=== PATIENT | female | born 1995 | race Caucasian/White ===

== ENCOUNTER 2022-08-17 04:37 | Outpatient (REF) | payer OTHER, SELFPAY ==
--- NOTE | ~2022-08-17 | US_ITS ---
EXAMINATION: ULTRASOUND OF THE PELVIS CLINICAL INFORMATION: 6 cm left ovarian cyst. Lower abdominal pain. Rule out torsion.. COMPARISON: MRI performed 06/28/2022.. TECHNIQUE: Transabdominal and transvaginal pelvic ultrasound. Doppler evaluation with spectral analysis was performed. A transvaginal study was performed in addition to the transabdominal study which did not yield an adequate examination of the uterus and ovaries due to superimposed distended gas-filled loops of bowel. FINDINGS: The uterus is normal in size and appearance, measuring 7.2 x 3.1 x 5 cm longitudinally, anteroposteriorly and transversely. The endometrial stripe thickness is normal, measuring 0.4 cm in thickness. No focal myometrial mass is seen. The ovaries bilaterally are visualized, with the right ovary measuring 3.1 x 1.7 x 2.1 cm and the left ovary measuring 1.8 x 0.9 x 1 cm. There are normal arterial and venous spectral waveforms bilaterally. There is a left adnexal mass measuring 7.1 x 4.6 x 6.5 cm. This is hyperechoic and well demarcated. This corresponds with the finding on previous imaging. Small volume of pelvic free fluid. US/US pelvic and transvaginal IMPRESSION: 1. No evidence of active ovarian torsion at this time. 2. Hyperechoic left adnexal mass. This corresponds with the finding on previous imaging, which was suggestive of an endometrioma
--- NOTE | ~2022-08-17 | US_ITS ---
EXAMINATION: ULTRASOUND OF THE PELVIS CLINICAL INFORMATION: 6 cm left ovarian cyst. Lower abdominal pain. Rule out torsion.. COMPARISON: MRI performed 06/28/2022.. TECHNIQUE: Transabdominal and transvaginal pelvic ultrasound. Doppler evaluation with spectral analysis was performed. A transvaginal study was performed in addition to the transabdominal study which did not yield an adequate examination of the uterus and ovaries due to superimposed distended gas-filled loops of bowel. FINDINGS: The uterus is normal in size and appearance, measuring 7.2 x 3.1 x 5 cm longitudinally, anteroposteriorly and transversely. The endometrial stripe thickness is normal, measuring 0.4 cm in thickness. No focal myometrial mass is seen. The ovaries bilaterally are visualized, with the right ovary measuring 3.1 x 1.7 x 2.1 cm and the left ovary measuring 1.8 x 0.9 x 1 cm. There are normal arterial and venous spectral waveforms bilaterally. There is a left adnexal mass measuring 7.1 x 4.6 x 6.5 cm. This is hyperechoic and well demarcated. This corresponds with the finding on previous imaging. Small volume of pelvic free fluid. US/US pelvic ovarian doppler IMPRESSION: 1. No evidence of active ovarian torsion at this time. 2. Hyperechoic left adnexal mass. This corresponds with the finding on previous imaging, which was suggestive of an endometrioma
== END 2022-08-17 04:38 | disposition home or self-care (01) ==
LOC: HO.US 04:37
PROVIDERS: Visit Provider Internal Medicine
DX: R10.31 Right lower quadrant pain (principal); N83.202 Unspecified ovarian cyst, left side
CPT/HCPCS: 76830; 76856; 93975